=== PATIENT | female | born 1995 | race Caucasian/White ===

== ENCOUNTER 2024-10-16 17:05 | Emergency (ER) | payer BC ==
[~2024-10-16] VITALS: Ht 167.6 cm; Wt 49.0 kg
[2024-10-16] MEDS ORDERED: LIDOCAINE 0.5% HCL 50 ML VIAL ONE (17:51)
[2024-10-16 18:41] VITALS: BP 114/70; TEMP 98.5; O2SAT 100
== END 2024-10-16 18:42 | disposition home or self-care (01) ==
LOC: ER 17:11
DX: S01.81XA Laceration without foreign body of other part of head, initial encounter (principal); W18.39XA Other fall on same level, initial encounter; Y93.89 Activity, other specified; Y92.89 Other specified places as the place of occurrence of the external cause; Y99.8 Other external cause status
CPT/HCPCS: 12013; 82962; 93005; 99283; J3490